=== PATIENT | female | born 1985 | race Caucasian/White ===

== ENCOUNTER 2017-10-04 05:07 | Day surgery (SDC) | payer OTHER ==
[2017-10-03 13:56] VITALS: BMI 39.3
--- NOTE | 2017-10-04 08:16 | HP ---
History & Physical Update - History History: No Change - Physical Physical: No Change - Assessment Assessment: No Change - Plan Plan: No Change
[2017-10-04] MEDS ORDERED: MIDAZOLAM HCL 2 MG/2 ML SINGLE DOSE VIAL ONE (08:49)
[2017-10-04] MEDS ORDERED: KETOROLAC TROMETHAMINE 30 MG/1 ML VIAL ONE (09:21)
[2017-10-04] MEDS ORDERED: PROPOFOL 20 ML ONE (09:21)
[2017-10-04] MEDS ORDERED: SUCCINYLCHOLINE CHLORIDE 200 MG/10 ML VIAL ONE (09:21)
[2017-10-04] MEDS ORDERED: LIDOCAINE HCL/PF 2% SDV 5ML VIAL ONE (09:22)
[2017-10-04] MEDS ORDERED: DEXAMETHASONE SOD PHOSPHATE 4 MG/1 ML VIAL ONE (09:22)
[2017-10-04] MEDS ORDERED: LIDOCAINE HCL 1%, 10 MG/ML (20ML VIAL) ONE (09:28)
[2017-10-04] MEDS ORDERED: ONDANSETRON 4 MG/2 ML VIAL IVPUSH PRN (10:18)
[2017-10-04] MEDS ORDERED: PROMETHAZINE HCL 25 MG/1 ML VIAL IVPUSH PRN (10:18)
[2017-10-04] MEDS ORDERED: oxyCODONE HCL 5 MG TABLET PO PRN (10:18)
[2017-10-04] MEDS ORDERED: LACTATED RINGERS SOLUTION 1,000 ML IV SCH (10:30)
[2017-10-04 10:38] VITALS: TEMP 98
--- NOTE | 2017-10-04 12:04 | OP ---
Operative Note - Note: Operative Date: 10/04/17 Pre-Operative Diagnosis: Submucoasal myomas. menorrhagia Operation: Hysteroscopic myomectomy. Suction DC Findings: Large myomas seen witin endometrial cavity Post-Operative Diagnosis: Same as Pre-op Surgeon: Chastity Albrecht Anesthesia: General Estimated Blood Loss (mls): 100 Operative Report Dictated: Yes
[2017-10-04 13:26] VITALS: BP 107/58; PULSE 65
--- NOTE | 2017-10-09 10:24 | PATH ---
Surgical Pathology Report Patient Name: SANJU REYNOLDS [facility]. Rec. #: [id number] /Age/Gender: 1985 (Age: 31) / F Account: [id number] Location: [facility] SURGICAL Taken: 10/04/2017 Received: 10/04/2017 Reported: 10/09/2017 Physicians: Chastity Albrecht M.D. Specimen(s) Received SUBMUCOSAL FIBROIDS Clinical History Submucosal leiomyomas Final Diagnosis UTERUS, SUBMUCOSAL FIBROIDS, HYSTEROSCOPIC MYOMECTOMY AND SUCTION DILATATION AND CURETTAGE: FRAGMENTS OF LEIOMYOMA, WEAKLY PROLIFERATIVE ENDOMETRIUM AND BENIGN CERVICAL TISSUE. Electronically Signed Rossana Mitchell M.D. Gross Description Received in formalin labeled "submucosal fibroids," is a 11 g, 6.3 x 6.0 x 0.7 cm aggregate of gonzalez, irregular, firm to rubbery portions of tissue admixed with blood clot, consistent with morcellated fibroids. Refining Machine Operator sections are submitted in 6 cassettes. /10/04/2017 [facility]10/04/2017
--- NOTE | 2017-10-11 08:04 | OP ---
DATE OF OPERATION: 10/04/2017 PREOPERATIVE DIAGNOSES: Submucosal myoma, menorrhagia. OPERATION: Hysteroscopic myomectomy, suction dilatation and curettage. FINDINGS: Large myoma seen within the endometrial cavity. POSTOPERATIVE DIAGNOSIS: Submucosal myoma, menorrhagia. SURGEON: Chastity Albrecht MD ANESTHESIA: General. ESTIMATED BLOOD LOSS: 100 mL DESCRIPTION OF PROCEDURE: Patient was taken to the operating room, placed in dorsal lithotomy position, prepped and draped in usual sterile fashion. A timeout was performed in accordance with hospital regulation. Speculum was placed in the vagina. Anterior lip of the cervix grasped with single-tooth tenaculum. Cervix was then dilated to accommodate the operative hysteroscope. Operative hysteroscope was inserted. Visualization revealed submucosal myomas. Cautery with the loop was then used to remove the numerous submucosal myomas seen within the endometrial cavity. Large amount of tissue was submitted to Pathology. This required approximately 20 minutes to 30 minutes of myoma removal. After numerous myoma removal, suction D&C was then performed. Cavity was improved, but numerous myomas were still seen. Due to fluid loss, procedure was stopped, and suction D&C was then performed. Estimated blood loss was 100 mL. Patient had tolerated the procedure well and was taken to recovery room in stable condition. CHASTITY ALBRECHT M.D. JONH/[id number]
== END 2017-10-04 12:20 | disposition home or self-care (01) ==
LOC: JASU-SURG 05:07
PROVIDERS: ATTEND Obstetrics & Gynecology
PROC: 0UJD8ZZ Inspection of Uterus and Cervix, Via Natural or Artificial Opening Endoscopic (ICD-10-PCS; 2017-10-04)
PROC: 0UB98ZZ Excision of Uterus, Via Natural or Artificial Opening Endoscopic (ICD-10-PCS; principal; 2017-10-04 09:00)
PROC: 0UDB7ZX Extraction of Endometrium, Via Natural or Artificial Opening, Diagnostic (ICD-10-PCS; 2017-10-04 09:00)
DX: D25.0 Submucous leiomyoma of uterus (principal); N92.0 Excessive and frequent menstruation with regular cycle
CPT/HCPCS: 88305-TC; 94760

== ENCOUNTER 2018-07-27 05:10 | Emergency (ER) | payer OTHER ==
--- NOTE | 2018-07-27 05:14 | PDOC ---
History of Present Illness - General Stated Complaint: ABDOMINAL PAIN/GALL BLADDER PROBLEM Time Seen by Provider: 07/27/18 05:14 - History of Present Illness Initial Comments: 32 year old female with PMH of cholelithiasis presenting with right upper quadrant abdominal pain for the past one hour. She was diagnosed with cholelithiasis on US in our ED on 04/25/18 and followed up with Dr. Story but she refused intervention and has put it off since. Today she woke up at 4:22 AM suddenly with 7/10 non radiating ruq pain, nausea, and chills. She ate a grilled chicken meal earlier tonight and has been avoiding fatty foods. Denies any chest pain, vomiting, diarrhea, urianry symptoms, cough or other symptoms. She does not drink smoke, and only takes OCPs. 07/27/18 05:28 Past History - Past Medical History Allergies/Adverse Reactions: Allergies Allergy/AdvReac Type Severity Reaction Status Date / Time No Known Allergies Allergy Verified 07/27/18 05:40 Home Medications: Ambulatory Orders Norethindrone AC-Eth Estradiol [Junel 1.5 mg-30 Mcg Tablet] 1 tab PO DAILY 10/03 Ibuprofen [Motrin -] 600 mg PO QID #28 tablet 10/04/17 Disorders: Yes (uterine fibroids) - Suicide/Smoking/Psychosocial Hx Smoking History: Current every day smoker Number of Cigarettes Smoked Daily: 5 'Breaking Loose' booklet given: 10/03/17 Hx Alcohol Use: No Drug/Substance Use Hx: No Substance Use Type: None Hx Substance Use Treatment: No Review of Systems - Review of Systems Constitutional: Yes: Chills. No: Diaphoresis, Fever, Loss of Appetite HEENTM: No: Eye Pain, Blurred Vision, Tearing Respiratory: No: Cough, Orthopnea, Shortness of Breath Cardiac (ROS): No: Chest Pain, Edema, Irregular Heart Rate ABD/GI: Yes: Nausea. No: Abdominal Distended, Diarrhea, Poor Appetite, Poor Fluid Intake, Vomiting : No: Dysuria, Discharge, Frequency Musculoskeletal: No: Back Pain, Gout, Joint Pain, Joint Swelling, Joint Stiffness Integumentary: No: Bruising, Change in Color, Pruritus, Rash Neurological: No: Headache, Numbness, Paresthesia Psychiatric: No: Anxiety, Depression Hematologic/Lymphatic: No: Anemia, Blood Clots, Easy Bleeding *Physical Exam - Physical Exam General Appearance: Yes: Nourished, Appropriately Dressed. No: Apparent Distress HEENT: positive: EOMI, JANESSA, Normal ENT Inspection, Normal Voice Neck: positive: Trachea midline, Normal Thyroid, Supple. negative: Tender, Rigid Respiratory/Chest: positive: Lungs Clear, Normal Breath Sounds. negative: Chest Tender, Respiratory Distress, Accessory Muscle Use Cardiovascular: positive: Regular Rhythm, Regular Rate Gastrointestinal/Abdominal: positive: Normal Bowel Sounds, Tender (RUQ tenderness), Flat, Soft Lymphatic: negative: Adenopathy, Tenderness Musculoskeletal: positive: Normal Inspection. negative: CVA Tenderness, Decreased Range of Motion Extremity: positive: Normal Capillary Refill, Normal Inspection, Normal Range of Motion Integumentary: positive: Normal Color, Dry, Warm Neurologic: positive: Fully Oriented, Alert, Normal Mood/Affect, Normal Response , Motor Strength / ED Treatment Course - LABORATORY CBC & Chemistry Diagram: 07/27/18 05:20 07/27/18 05:20 Medical Decision Making - Medical Decision Making 32 year old female with cholelithiasis diagnosed on US on 04/25 in our facility presenting with similar RUQ pain. Labs WNL and symptoms resolved after 1 L NS IV and Ofirmev 1 G. Patient does not want to pursue surgery right now but would like to follow up with a surgeon as an outpatient. We discussed lifestyle/ diet change and she will attempt to avoid fats. Patient much better overall and stable for diarrhea. 07/27/18 06:27 *DC/Admit/Observation/Transfer Diagnosis at time of Disposition: Cholelithiasis Qualifiers: Cholelithiasis location: gallbladder Cholecystitis presence: without cholecystitis Biliary obstruction: without biliary obstruction Qualified Code(s) : K80.20 - Calculus of gallbladder without cholecystitis without obstruction - Discharge Dispostion Disposition: HOME Condition at time of disposition: Improved Decision to Admit order: No - Referrals Referrals: Debra Alanis MD [Primary Care Provider] - Micheal Story MD [Staff Physician] - Tadeo Lacy MD [Staff Physician] - - Patient Instructions Printed Discharge Instructions: DI for Gallstones Additional Instructions: Please avoid fats for the next few weeks. Please make an appointment as early as possible to see either your previous surgeon (Dr. Story) or Dr. Lacy on this form. Please also set up an appointment with the GI doctor (Travis). Please follow up with your PCP on Sunday as well. Return to the Ed if you have fevers, chills, nausea, vomiting, or pain that does not improve with Tylenol/ Motrin. - Post Discharge Activity Forms/Work/School Notes: Back to Work
[2018-07-27] MEDS ORDERED: ONDANSETRON 4 MG/2 ML VIAL IVPUSH ONE (05:29)
[2018-07-27] MEDS ORDERED: ACETAMINOPHEN 1000 MG/100 ML VIAL (NON FORMULARY) IVPB ONE (05:29)
--- NOTE | 2018-07-27 05:29 | PDOC ---
Attending Attestation - Resident Resident Name: OnofreFrankleannimani - ED Attending Attestation I have performed the following: I have examined & evaluated the patient, The case was reviewed & discussed with the resident, I agree w/resident's findings & plan - HPI HPI: 07/27/18 05:51 Pt comes with RUQ pain and she states that she has known she has GB stones and she met with gen surg in the past, but hoped the stones would disappear on their own. Yesterday she ate chicken and woke up with RUQ pain.. - Physicial Exam PE: 07/27/18 05:53 Agree with resident exam 07/27/18 06:27 Pt has no RUQ pain at this time. - Medical Decision Making 07/27/18 05:53 Pt will not require official sono at this time, as she has normal labs and LFTs and she will follow with gen surg for elective procedure, as well as GI to discuss potential medical treatment options. Stable for discharge. Heart Score/ECG Review - ECG Intrepretation Rhythm: Regular Rhythm - [place]: Normal - P and GA Delta Wave(s) Present: No WPW: No - QRS Poor R Wave Progression: No Q Wave Present: No - ST and T Early Repolarization: No Non Specific ST-T Wave changes: No - ECG Impressions Normal ECG: Yes Non-specific ST Elevation: No Ischemic Changes: No Bradycardia: No Torsades rocky Pointes: No WPW: No
[2018-07-27 05:30] LABS: BASO % 0.7 % (0-2.0); EOS % 1.5 % (0-4.5); HEMATOCRIT 38.7 % (32.4-45.2); HEMOGLOBIN 12.6 GM/dL (10.7-15.3); LYMPH % 25.3 % (8-40); MCHC 32.6 g/dl (32.0-36.0); MEAN CELL VOLUME 92.2 fl (80-96); MEAN PLT VOLUME 7.6 fl (7.5-11.1); MONO % 5.5 % (3.8-10.2); PLATELET COUNT 333 K/MM3 (134-434); RBC 4.19 M/mm3 (3.60-5.2); RDW 14.8 % (11.6-15.6); WHITE BLOOD COUNT 11.8 K/mm3 (4.0-10.0)
[2018-07-27] MEDS ORDERED: ONDANSETRON 4 MG/2 ML VIAL ONE (05:30)
[2018-07-27] MEDS ORDERED: ACETAMINOPHEN INJECTION 100 ML IVPB ONE (05:30)
[2018-07-27 05:41] VITALS: BMI 32.8
[2018-07-27 05:42] LABS: URINE APPEARANCE CLEAR; URINE BILIRUBIN NEGATIVE (<2.0 mg/dL); URINE COLOR YELLOW; URINE GLUCOSE (UA) NEGATIVE (NEGATIVE); URINE KETONE NEGATIVE (NEGATIVE); URINE LEUK ESTERASE NEGATIVE (NEGATIVE); URINE NITRITE NEGATIVE (NEGATIVE); URINE PROTEIN NEGATIVE (NEGATIVE); URINE UROBILINOGEN NEGATIVE mg/dL (0.2-1.0)
[2018-07-27 05:44] LABS: HCG,QUALITATIVE URINE Negative
[2018-07-27 05:53] LABS: BLOOD UREA NITROGEN 16 mg/dL (7-18); CHLORIDE 108 mmol/L (98-107); CO2 27 mmol/L (21-32); GLUCOSE,RANDOM 103 mg/dL (74-106); POTASSIUM 3.9 mmol/L (3.5-5.1); SODIUM 141 mmol/L (136-145)
[2018-07-27 05:54] LABS: ALBUMIN 3.7 g/dl (3.4-5.0); ALK PHOS 82 U/L (45-117); AMYLASE 68 U/L (25-115); ANION GAP 6 MMOL/L (8-16); BILIRUBIN,TOTAL 0.2 mg/dL (0.2-1); CALCIUM 9.4 mg/dL (8.5-10.1); LIPASE 222 U/L (73-393); SGOT/AST 23 U/L (15-37); SGPT/ALT 39 U/L (13-61); TOT PROT 7.6 g/dl (6.4-8.2)
[2018-07-27 06:02] LABS: INR 0.94 (0.83-1.09); PROTHROMBIN TIME (PATIENT) 11.1 SEC (9.7-13.0)
[2018-07-27 06:41] VITALS: BP 120/69; PULSE 76; TEMP 98.1
--- NOTE | 2018-07-27 11:52 | EKG ---
Test Reason : Blood Pressure : / mmHG Vent. Rate : 067 BPM Atrial Rate : 067 BPM P-R Int : 144 ms QRS Dur : 084 ms QT Int : 396 ms P-R-T Axes : 019 005 021 degrees QTc Int : 418 ms NORMAL SINUS RHYTHM NORMAL ECG NO PREVIOUS ECGS AVAILABLE Confirmed by SALEEM RODRIGUEZ MD ([id number]) on 07/27/2018 11:51:40 AM Referred By: Confirmed By:SALEEM RODRIGUEZ MD
== END 2018-07-27 06:48 | disposition home or self-care (01) ==
LOC: JER 05:10
PROC: 3E033GC Introduction of Other Therapeutic Substance into Peripheral Vein, Percutaneous Approach (ICD-10-PCS; principal; 2018-07-27)
PROC: 3E033NZ Introduction of Analgesics, Hypnotics, Sedatives into Peripheral Vein, Percutaneous Approach (ICD-10-PCS; 2018-07-27)
DX: K80.20 Calculus of gallbladder without cholecystitis without obstruction (principal)
CPT/HCPCS: 36415; 80053; 81003; 82150; 83690; 84703; 85025; 85610; 86850; 86900; 86901; 93005; 93010; 99283-25; J0131

== ENCOUNTER 2018-08-05 09:21 | Day surgery (SDC) | payer OTHER ==
[~2018-08-05 09:21] MED LIST: LACTATED RINGERS SOLUTION 1,000 ML IV SCH; ONDANSETRON 4 MG/2 ML VIAL IVPUSH PRN
[2018-08-05] MEDS ORDERED: DEXAMETHASONE SOD PHOSPHATE 4 MG/1 ML VIAL ONE (09:28)
[2018-08-05] MEDS ORDERED: MIDAZOLAM HCL 2 MG/2 ML SINGLE DOSE VIAL ONE (09:28)
[2018-08-05] MEDS ORDERED: PROPOFOL 20 ML ONE (09:28)
[2018-08-05] MEDS ORDERED: PHENYLEPHRINE HCL 10 MG/1 ML SINGLE DOSE VIAL ONE (09:28)
[2018-08-05] MEDS ORDERED: ePHEDrine SULFATE 50 MG/1 ML AMPULE ONE (09:28)
[2018-08-05] MEDS ORDERED: LIDOCAINE HCL/PF 2% SDV 5ML VIAL ONE (09:28)
[2018-08-05] MEDS ORDERED: SUCCINYLCHOLINE CHLORIDE 200 MG/10 ML VIAL ONE (09:31)
[2018-08-05] MEDS ORDERED: ROCURONIUM BROMIDE 50 MG/5 ML VIAL ONE (09:31)
[2018-08-05 09:47] VITALS: BMI 34.2
[2018-08-05] MEDS ORDERED: BUPIVACAINE HCL/PF 0.5% (5MG/ML) 10 ML VIAL ONE (09:54)
--- NOTE | 2018-08-05 10:19 | HP ---
History & Physical Update - History History: No Change - Physical Physical: No Change - Assessment Assessment: No Change - Plan Plan: No Change (see my office notes.)
[2018-08-05] MEDS ORDERED: fentaNYL CITRATE 250 MCG/5 ML VIAL ONE (10:24)
--- NOTE | 2018-08-05 10:35 | HP ---
Admitting History and Physical - Admission Chief Complaint: recurrent RUQ abdominal pain History of Present Illness: As above; RUQ abdo pain after eating fatty foods ; started 3-4 months ago and w/ u was done. History Source: Patient Limitations to Obtaining History: No Limitations - Past Medical History ...LMP: 08/05/18 ...: No - Past Surgical History Additional Past Surgical History: myomectomy and pilonidal cystectomy - Smoking History Smoking history: Current every day smoker Have you smoked in the past 12 months: No Aproximately how many cigarettes per day: 5 - Alcohol/Substance Use Hx Alcohol Use: No History of Substance Use: reports: None Home Medications - Allergies Allergies/Adverse Reactions: Allergies Allergy/AdvReac Type Severity Reaction Status Date / Time No Known Allergies Allergy Verified 08/05/18 09:42 - Home Medications Home Medications: Ambulatory Orders Norethindrone AC-Eth Estradiol [Junel 1.5 mg-30 Mcg Tablet] 1 tab PO DAILY 10/03 Physical Examination Vital Signs: Vital Signs Temperature 98.3 F 08/05/18 09:47 Pulse Rate 67 08/05/18 09:47 Respiratory Rate 16 08/05/18 09:47 Blood Pressure 112/67 08/05/18 09:47 O2 Sat by Pulse Oximetry (%) 98 08/05/18 09:47 Constitutional: Yes: Well Nourished, No Distress, Calm Eyes: Yes: WNL, Conjunctiva Clear, EOM Intact HENT: Yes: WNL, Atraumatic, Normocephalic Neck: Yes: WNL, Supple, Trachea Midline Cardiovascular: Yes: WNL, Regular Rate and Rhythm Respiratory: Yes: WNL, Regular, CTA Bilaterally Gastrointestinal: Yes: WNL, Normal Bowel Sounds ...Rectal Exam: Yes: Deferred, Other (deferred) Breast(s): Yes: Other (defrred) Musculoskeletal: Yes: WNL Extremities: Yes: WNL Peripheral Pulses WNL: Yes Integumentary: Yes: WNL Neurological: Yes: WNL, Alert, Oriented Psychiatric: Yes: WNL Assessment/Plan biliary colic PLAN: Forlap christine possible open; r/b/t/a's d/w her and informed consent obtained. Visit type - Emergency Visit Emergency Visit: No - New Patient This patient is new to me today: No - Critical Care Critical Care patient: No
[2018-08-05] MEDS ORDERED: DESFLURANE GAS 240 ML BOTTLE IH ONE (11:01)
[2018-08-05] MEDS ORDERED: ceFAZolin SODIUM 1 GM VIAL IVPB ONE (11:03)
[2018-08-05] MEDS ORDERED: NEOSTIGMINE METHYLSULFATE 0.5 MG/ML - 10 ML MDV ONE (12:07)
[2018-08-05] MEDS ORDERED: GLYCOPYRROLATE 0.2 MG/1 ML VIAL ONE ×3 (12:16→12:17)
[2018-08-05] MEDS ORDERED: BUPIVACAINE HCL/PF (5 MG/ML) 30 ML VIAL IJ ONE (12:20)
--- NOTE | 2018-08-05 12:22 | OP ---
Operative Note - Note: Operative Date: 08/05/18 Pre-Operative Diagnosis: cholelithiasis; chronic cholecystitis Operation: laparoscopic cholecystectomy Surgeon: Micheal Story Oven Heater Helper: Cristóbal Lewis Anesthesiologist/INTERNATIONAL TRAVEL CONSULTANT: Ramo Johnson Anesthesia: General Specimens Removed: gallbladder and contents Estimated Blood Loss (mls): 20
--- NOTE | 2018-08-05 12:42 | SURG ---
Surgery Certified Physician Assistant Note Certified Physician Assistant: Cristóbal Lewis PA-C Date of Service: 08/05/18 Diagnosis: Chronic cholecystitis, cholelithiasis Procedure: Laproscopic cholecystectomy I was present for the entirety of the operative procedure. For further detail, please refer to operative report.
[2018-08-05 15:24] VITALS: BP 121/78; PULSE 68; TEMP 97.9
--- NOTE | 2018-08-06 16:13 | PATH ---
Surgical Pathology Report Patient Name: SANJU REYNOLDS [facility]. Rec. #: [id number] /Age/Gender: 1985 (Age: 32) / F Account: [id number] Location: [facility] SURGICAL Taken: 08/05/2018 Received: 08/05/2018 Reported: 08/06/2018 Physicians: Micheal Story MD Specimen(s) Received GALLBLADDER Clinical History Cholecystitis, cholelithiasis Final Diagnosis GALLBLADDER, CHOLECYSTECTOMY: CHRONIC CHOLECYSTITIS AND CHOLELITHIASIS. Electronically Signed Santana Byrd M.D. Gross Description Received in formalin, labeled "gallbladder," is a 10.7 x 2.3 x 2.3 cm. gallbladder with a 0.2 cm. in length portion of cystic duct attached. The outer surface is gonzalez-pink and varies from smooth to shaggy. The lumen contains green, tenacious bile as well as multiple brown, irregular choleliths averaging 1.7 cm in greatest dimension. The mucosa is gonzalez and focally eroded. The wall of the gallbladder averages 0.[address] Recorder sections are submitted in one cassette. 08/05/2018 saudi08/05/2018
--- NOTE | 2018-08-07 09:52 | OP ---
DATE OF OPERATION: 08/05/2018 PREOPERATIVE DIAGNOSIS: Chronic cholecystitis, cholelithiasis. POSTOPERATIVE DIAGNOSIS: Chronic cholecystitis, cholelithiasis. PROCEDURE: Laparoscopic cholecystectomy. SURGEON: Micheal Story MD MASTER OF CEREMONIES: Cristóbal Lewis PA-C ANESTHESIA: General. OPERATIVE FINDINGS: Cholelithiasis and chronic cholecystitis. The rest of the findings were unremarkable. DESCRIPTION OF PROCEDURE: The patient was placed on the operating room table in supine position. After the induction of general anesthesia, the patient's abdomen was prepped with ChloraPrep and draped in sterile fashion. Time-out was taken and then pneumoperitoneum established above the umbilicus using a Veress needle. Once 15 mm of intra-abdominal pressure was obtained, a 5-mm port was placed at the umbilicus. Additional lateral 5-mm ports and a subxiphoid 12-mm port were placed and laparoscopy carried out, and the previously noted findings were observed. The gallbladder was placed on cephalad and lateral traction, and dissection was begun at the neck of the gallbladder where the peritoneum was opened medially and laterally using blunt and sharp dissection and electrocautery. Dissection continued in the triangle of Calot where the cystic duct was identified coursing from the neck of the gallbladder distally to the common bile duct. It was dissected proximally and distally for length. Similarly, the artery was similarly identified and dissected. A critical view of safety was taken, and then the cystic duct divided proximally and distally using Endo Afia after it was clipped twice proximally and distally with large hemoclips. The artery was similarly clipped and divided. Hemostasis was checked for and noted to be good and then the gallbladder was removed from the liver bed in a retrograde fashion using electrocautery. Prior to removal from the edge of the liver, hemostasis was again verified and then the gallbladder removed from the edge of the liver, placed in an EndoCatch, and brought out through the subxiphoid port. Pneumoperitoneum was reestablished, hemostasis verified again, and then the 5-mm lateral and subxiphoid ports were removed under laparoscopic vision without evidence of bleeding from the port sites. The umbilical port was removed and the pneumoperitoneum evacuated. All port sites were infiltrated with 0.5% Marcaine and the skin edges closed with 4-0 Biosyn in a subcuticular and continuous fashion. Steri-Strips and Band-Aid dressings were placed and the procedure terminated at this point and the patient aroused from general anesthesia and transferred to the post anesthesia care unit in stable condition awake and alert. ESTIMATED BLOOD LOSS: Minimal. REPLACEMENTS: Crystalloid. DRAINS: None. SPECIMENS: Gallbladder and contents to pathology. I, Micheal Story, was physically present in the operating room from the time the patient was placed on the operating room table until she was transferred to the post anesthesia care unit in [employer]. MD GRACIE Taylor/[id number] MTDD
== END 2018-08-05 15:00 | disposition home or self-care (01) ==
LOC: JASU-SURG 09:21
PROVIDERS: ATTEND Surgery
PROC: 0FT44ZZ Resection of Gallbladder, Percutaneous Endoscopic Approach (ICD-10-PCS; principal; 2018-08-05 10:30)
DX: K80.18 Calculus of gallbladder with other cholecystitis without obstruction (principal)
CPT/HCPCS: 84703; 88304-TC; 94760

== ENCOUNTER 2020-03-16 16:03 | Emergency (ER) | payer OTHER ==
[2020-03-16 16:07] VITALS: BMI 38.4
[2020-03-16] MEDS ORDERED: SODIUM CHLORIDE 1,000 ML IV STA (16:16)
--- NOTE | 2020-03-16 16:16 | PDOC ---
Rapid Medical Evaluation Chief Complaint: Pain Time Seen by Provider: 03/16/20 16:06 Medical Evaluation: Allergies Allergy/AdvReac Type Severity Reaction Status Date / Time No Known Allergies Allergy Verified 02/27/20 11:15 03/16/20 16:13 CC: lower abd pain with fever x 2 days, mild nausea, no other complaints Exam: mid suprapubic and periumbilical tenderness, no cva tenderness Plan: labs, urine, tylenol, ivf, iv Discharge Disposition - Diagnosis Abdominal pain - Referrals - Patient Instructions - Post Discharge Activity
[2020-03-16] MEDS ORDERED: ACETAMINOPHEN 500 MG TABLET (FP) PO ONE (16:22)
--- NOTE | 2020-03-16 16:24 | PDOC ---
History of Present Illness - General Chief Complaint: Pain Stated Complaint: LOWER ABD PAIN/FEVER Time Seen by Provider: 03/16/20 16:06 - History of Present Illness Initial Comments: 03/16/20 16:22 34 y/o 2 elective AB presents to the ER with lower abdominal pain x2 days. Associated fever Past History - Medical History Allergies/Adverse Reactions: Allergies Allergy/AdvReac Type Severity Reaction Status Date / Time No Known Allergies Allergy Verified 03/16/20 16:07 Home Medications: Ambulatory Orders Norethindrone AC-Eth Estradiol [Junel 1.5 mg-30 Mcg Tablet] 1 tab PO DAILY 10/03/17 Docusate Sodium [Colace] 100 mg PO BID #30 capsule 08/05/18 oxyCODONE HCL [Roxicodone -] 5 mg PO Q4H PRN #20 tablet MDD 6 08/05/18 Ciprofloxacin HCl [Cipro] 500 mg PO BID #14 tablet 03/16/20 Metronidazole [Flagyl] 500 mg PO BID #14 capsule 03/16/20 Anemia: No Asthma: No Cancer: No Cardiac Disorders: No CVA: No COPD: No CHF: No Dementia: No Diabetes: No GI Disorders: No Disorders: Yes (uterine fibroids) HTN: No Hypercholesterolemia: No Liver Disease: No Seizures: No Thyroid Disease: No - Surgical History Abdominal Surgery: No Appendectomy: No Cardiac Surgery: No - Reproductive History Cervical CA: No Ectopic : No Endometrial CA: No Polycystic Ovaries: No - Immunization History Immunization Up to Date: Yes - Psycho-Social/Smoking History Smoking History: Never smoked Have you smoked in the past 12 months: No Number of Cigarettes Smoked Daily: 5 'Breaking Loose' booklet given: 10/03/17 - Substance Abuse Hx (Audit-C & DAST Scrn) How often the patient has a drink containing alcohol: Never Score: In Men: 4 or > Positive; In Women: 3 or > Positive: 0 Screen Result (Pos requires Nsg. Audit-10AR): Negative In the last yr the pt used illegal drug/Rx for NonMed reason: No Score: Yes response is considered Positive: 0 Screen Result (Positive result requires Nsg. DAST-10): Negative Review of Systems - Review of Systems Constitutional: Yes: Fever. No: Chills, Night Sweats ABD/GI: Yes: Nausea. No: Constipated, Diarrhea, Poor Appetite, Vomiting : No: Burning, Dysuria, Discharge, Frequency, Hematuria Musculoskeletal: No: Back Pain *Physical Exam - Vital Signs Last Vital Signs Temp Pulse Resp BP Pulse Ox 100.4 F H 78 16 118/78 100 03/16/20 16:05 03/16/20 16:05 03/16/20 16:05 03/16/20 16:05 03/16/20 16:05 - Physical Exam 03/16/20 21:13 GENERAL: The patient is awake, alert, and fully oriented, in no acute distress. HEAD: Normal with no signs of trauma. EYES: sclera anicteric, conjunctiva clear. ENT: Ears normal tympanic membranes normal oropharynx clear uvula midline NECK: Normal range of motion LUNGS: Breath sounds equal, clear to auscultation bilaterally. No wheezes, and no crackles. HEART: S1 and S2 without murmur, rub or gallop. ABDOMEN: Soft, Right lower quadrant tenderness mild left-sided tenderness, normoactive bowel sounds. No guarding, no rebound. No masses. EXTREMITIES: Normal range of motion, no edema. No clubbing or cyanosis. No cords, erythema, or tenderness. NEUROLOGICAL: Cranial nerves II through XII grossly intact. PSYCH: Normal mood, normal affect. SKIN: Warm, Dry, normal turgor, no rashes or lesions noted. ED Treatment Course - LABORATORY CBC & Chemistry Diagram: 03/16/20 16:30 03/16/20 16:30 Medical Decision Making - Medical Decision Making 03/16/20 21:13 CT reviewed with patient we will treat for colitis based on symptoms and fever. Follow-up with GI as well as TOE STRIPPER for ovarian cyst I have reviewed the pathophysiology with the patient. They are in agreement with the treatment plan all questions were answered to their satisfaction. Unde rstanding for follow-up without fail was also conveyed to the patient. Again they are in agreement. Discharge - Discharge Information Problems reviewed: Yes Clinical Impression/Diagnosis: Abdominal pain, Colitis, Ovarian cyst Condition: Stable Disposition: HOME - Admission No - Follow up/Referral Referrals: Edi Robles MD [Staff Physician] - Uma Gil MD [Staff Physician] - - Patient Discharge Instructions Additional Instructions: Without fail follow-up with both TOE STRIPPER as well as gastroenterology in the next 1 to 2 days without fail Please take the antibiotics and finish them as directed and return to the emergency room tomorrow should your symptoms not begin to resolve. - Post Discharge Activity
[2020-03-16] MEDS ORDERED: ACETAMINOPHEN 325 MG TABLET (FP) ONE (16:45)
[2020-03-16 17:04] LABS: BASO % 0.2 % (0-2.0); EOS % 0.6 % (0-4.5); HEMATOCRIT 31.3 % (32.4-45.2); HEMOGLOBIN 10.3 GM/dL (10.7-15.3); LYMPH % 18.7 % (8-40); MCH 30.4 pg (25.7-33.7); MCHC 33.1 g/dl (32.0-36.0); MEAN CELL VOLUME 92.1 fl (80-96); MEAN PLT VOLUME 7.8 fl (7.5-11.1); MONO % 5.3 % (3.8-10.2); NEUT % 75.2 % (42.8-82.8); PLATELET COUNT 401 K/MM3 (134-434); RDW 13.1 % (11.6-15.6)
[2020-03-16 17:12] LABS: PH,URINE 5.5 (5.0-8.0); URINE APPEARANCE CLOUDY; URINE BILIRUBIN NEGATIVE (NEGATIVE); URINE COLOR YELLOW; URINE GLUCOSE (UA) NEGATIVE (NEGATIVE); URINE KETONE NEGATIVE (NEGATIVE); URINE LEUK ESTERASE NEGATIVE (NEGATIVE); URINE NITRITE NEGATIVE (NEGATIVE); URINE PROTEIN NEGATIVE (NEGATIVE)
[2020-03-16 17:14] LABS: HCG,QUALITATIVE URINE Negative
[2020-03-16 17:34] LABS: ALBUMIN 3.6 g/dl (3.4-5.0); BILIRUBIN,TOTAL 0.3 mg/dL (0.2-1); BLOOD UREA NITROGEN 10.8 mg/dL (7-18); CALCIUM 9.6 mg/dL (8.5-10.1); CREATININE 0.7 mg/dL (0.55-1.3); POTASSIUM 4.1 mmol/L (3.5-5.1)
[2020-03-16 18:12] VITALS: BP 98/68; PULSE 65; TEMP 99.2
--- NOTE | 2020-03-16 19:38 | PDOC ---
*Physical Exam - Vital Signs Last Vital Signs Temp Pulse Resp BP Pulse Ox 99.2 F 65 18 98/68 100 03/16/20 18:00 03/16/20 18:00 03/16/20 18:00 03/16/20 18:00 03/16/20 18:00 ED Treatment Course - LABORATORY CBC & Chemistry Diagram: 03/16/20 16:30 03/16/20 16:30 - ADDITIONAL ORDERS Additional order review: Laboratory Results 03/16/20 03/16/20 16:30 16:30 Sodium 140 Potassium 4.1 Chloride 108 H Carbon Dioxide 25 Anion Gap 7 L BUN 10.8 Creatinine 0.7 Est GFR (CKD-EPI)AfAm 132.87 Est GFR (CKD-EPI)NonAf 114.64 Random Glucose 86 Calcium 9.6 Magnesium 2.0 Total Bilirubin 0.3 AST 15 ALT 20 Alkaline Phosphatase 84 Total Protein 7.0 Albumin 3.6 Lipase 125 Urine Color Yellow Urine Appearance Cloudy Urine pH 5.5 D Ur Specific [place] 1.023 Urine Protein Negative Urine Glucose (UA) Negative Urine Ketones Negative Urine Blood Negative Urine Nitrite Negative Urine Bilirubin Negative Urine Urobilinogen 1.0 Ur Leukocyte Esterase Negative Urine HCG, Qual Negative 03/16/20 16:30 RBC 3.40 L MCV 92.1 MCHC 33.1 RDW 13.1 MPV 7.8 Neutrophils % 75.2 Lymphocytes % 18.7 D Monocytes % 5.3 Eosinophils % 0.6 Basophils % 0.2 - Medications Given in the ED: ED Medications Discontinued Medications Generic Name Dose Route Start Last Admin Trade Name Freq PRN Reason Stop Dose Admin Acetaminophen 1,000 mg 03/16/20 16:22 03/16/20 16:59 Tylenol - PO 03/16/20 16:23 1,000 mg ONCE ONE Administration Sodium Chloride 1,000 mls @ 1,000 mls/hr 03/16/20 16:16 03/16/20 17:00 Normal Saline - IV 03/16/20 17:15 1,000 mls/hr ASDIR STA Administration Medical Decision Making - Medical Decision Making 03/16/20 19:38 Patient seen by the advanced practice provider under my supervision. Ancillary testing reviewed as necessary. I agree with plan as outlined by the advanced practice provider. Discharge - Discharge Information Problems reviewed: Yes Clinical Impression/Diagnosis: Abdominal pain, Colitis, Ovarian cyst Condition: Stable Disposition: HOME - Additional Discharge Information Prescriptions: Ciprofloxacin HCl [Cipro] 500 mg PO BID #14 tablet Metronidazole [Flagyl] 500 mg PO BID #14 capsule - Follow up/Referral Referrals: Uma Gil MD [Staff Physician] - Edi Robles MD [Staff Physician] - - Patient Discharge Instructions Additional Instructions: Without fail follow-up with both [facility] as well as gastroenterology in the next 1 to 2 days without fail Please take the antibiotics and finish them as directed and return to the emergency room tomorrow should your symptoms not begin to resolve. - Post Discharge Activity
== END 2020-03-16 21:27 | disposition home or self-care (01) ==
LOC: JER 16:03
PROC: 3E0337Z Introduction of Electrolytic and Water Balance Substance into Peripheral Vein, Percutaneous Approach (ICD-10-PCS; principal; 2020-03-16)
DX: K52.9 Noninfective gastroenteritis and colitis, unspecified (principal); N83.209 Unspecified ovarian cyst, unspecified side
CPT/HCPCS: 36415; 74177-TC; 80053; 81003; 83690; 83735; 84703; 85025; 87086; 99285-25; Q9967

== ENCOUNTER 2020-09-24 21:45 | Emergency (ER) | payer OTHER ==
[2020-09-24 22:00] VITALS: BP 123/85; PULSE 86; TEMP 98; BMI 37.5
[2020-09-24] MEDS ORDERED: ALBUTEROL SO4 2.5/IPRATROPIUM 0.5 INH SOL 3 ML VIAL.NEB. NEB ONE (22:33)
[2020-09-24 22:48] LABS: BASO % 0.5 % (0-2.0); EOS % 5.3 % (0-4.5); HEMATOCRIT 28.3 % (32.4-45.2); HEMOGLOBIN 8.7 GM/dL (10.7-15.3); LYMPH % 25.3 % (8-40); MCH 21.8 pg (25.7-33.7); MCHC 30.7 g/dl (32.0-36.0); MEAN CELL VOLUME 70.8 fl (80-96); MEAN PLT VOLUME 7.5 fl (7.5-11.1); MONO % 6.2 % (3.8-10.2); NEUT % 62.7 % (42.8-82.8); PLATELET COUNT 429 K/MM3 (134-434); RDW 17.6 % (11.6-15.6); WHITE BLOOD COUNT 11.1 K/mm3 (4.0-10.0)
[2020-09-24 23:02] LABS: CHLORIDE 110 mmol/L (98-107); POTASSIUM 3.8 mmol/L (3.5-5.1); SODIUM 141 mmol/L (136-145)
[2020-09-24 23:05] LABS: ALBUMIN 3.3 g/dl (3.4-5.0); ANION GAP 7 MMOL/L (8-16); BLOOD UREA NITROGEN 12.2 mg/dL (7-18); CO2 24 mmol/L (21-32); GLUCOSE,RANDOM 88 mg/dL (74-106)
[2020-09-24 23:08] LABS: CREATININE 0.8 mg/dL (0.55-1.3); SGOT/AST 13 U/L (15-37); SGPT/ALT 20 U/L (13-61)
[2020-09-24 23:09] LABS: TOT PROT 6.8 g/dl (6.4-8.2)
[2020-09-24 23:11] LABS: ALK PHOS 94 U/L (45-117)
[2020-09-24 23:13] LABS: BILIRUBIN,TOTAL 0.2 mg/dL (0.2-1); N-TERMINAL BNP 8.7 pg/ml (5-125)
[2020-09-24] MEDS ORDERED: predniSONE 20 MG TABLET (UD) PO ONE (23:19)
[2020-09-24] MEDS ORDERED: predniSONE 20 MG TABLET (UD) ONE (23:24)
[2020-09-24] MEDS: ALBUTEROL SO4 2.5/IPRATROPIUM 0.5 INH SOL 3 ML VIAL.NEB. NEB SCH ×2 (23:30→23:48)
[2020-09-24 23:39] LABS: ANISOCYTOSIS 2+; MACROCYTOSIS 1+; OVALOCYTE 1+; PLATELET ESTIMATE NORMAL
== END 2020-09-25 02:15 | disposition home or self-care (01) ==
LOC: JER 21:45
PROC: 3E0F7GC Introduction of Other Therapeutic Substance into Respiratory Tract, Via Natural or Artificial Opening (ICD-10-PCS; principal; 2020-09-24)
DX: R06.2 Wheezing (principal); J40 Bronchitis, not specified as acute or chronic
CPT/HCPCS: 36415; 71045-TC-FY; 71275-TC; 80053; 83880; 84484; 84703; 85025; 85379; 93005; 93010; 99285-25; C9803; U0003